=== PATIENT | female | born 1965 | race Caucasian/White ===

== ENCOUNTER → 2016-05-29 | Outpatient (CLI) | payer BC ==
[~2016-05-29] MED LIST: LORA5TAB3 PO
== END | disposition home or self-care (01) ==
LOC: C.PAPS 12:01
PROVIDERS: ATTEND Obstetrics & Gynecology
DX: Z01.419 Encounter for gynecological examination (general) (routine) without abnormal findings (principal)

== ENCOUNTER → 2016-05-31 | Outpatient (CLI) | payer BC ==
[2016-05-31 11:29] LABS: BASO % 0.6 %; BASO ABS # 0.03 K/uL (0-0.2); COMPLETE YES; EOS % 1.8 %; HEMATOCRIT 42.3 % (37-47); LYMPH % 33.7 %; LYMPH ABS # 1.72 K/uL (1.2-3.4); MEAN CELL VOLUME 89.6 fL (80-100); MEAN CORPUSCULAR HEMOGLOBIN 29.7 pg (25-34); MEAN CORPUSCULAR HGB CONC 33.1 g/dl (32-36); MEAN PLATELET VOLUME 12.4 fL (7.4-10.4); MONO % 7.3 %; NEUT % 56.6 %; PLATELET COUNT 221 K/uL (130-400); RED BLOOD COUNT 4.72 M/uL (4.2-5.4)
== END | disposition home or self-care (01) ==
LOC: C.LABBC 07:05
PROVIDERS: ATTEND Obstetrics & Gynecology
DX: Z01.818 Encounter for other preprocedural examination (principal)

== ENCOUNTER → 2016-06-13 | Day surgery (SDC) | payer BC ==
--- NOTE | 2016-06-02 14:19 | HISTORY & PHYSICAL EXAMINATION ---
DATE OF ADMISSION: 06/13/2016 For surgery on 06/13/2016. CHIEF COMPLAINT: Menorrhagia. HISTORY OF PRESENT ILLNESS: The patient is a 51-year-old white female, 1, para 1, whose last menstrual period was 05/03/2016. The patient continues to have menses sometimes lasting 2 weeks and sometimes passing large clots. The patient gets nauseated with passage of these clots. She has taken time off work due to the amount of bleeding with her menses. The patient has been on Depo-Provera in the past and then used progestin only pills. She stopped the medications and began menstruating again, having heavy periods as described. The patient does not wish to use hormones again. She is presently using condoms for contraception. She has considered her options for treatment and desires surgical treatment with endometrial ablation. Ultrasound done October 2015 showed a thin endometrial lining. Her right ovary is surgically absent and her left ovary appeared normal. Pap smear was done on 05/29/2016 and this was negative. ALLERGIES: The patient reports no known drug allergies. SHE HAS ENVIRONMENTAL ALLERGIES TO DUST AND POLLENS. MEDICATIONS: She presently takes Claritin-D. ILLNESSES: Menorrhagia with dysmenorrhea as above. PAST MEDICAL HISTORY: The patient does have a history of an ovarian cyst, which was surgically removed. PAST SURGICAL HISTORY: She has had 1 section. She has undergone cholecystectomy. She had laparoscopy with removal of her right tube and ovary. She has also had shoulder surgery and carpal tunnel surgery. FAMILY HISTORY: Her maternal grandfather had colon cancer. SOCIAL HISTORY: The patient is . She denies smoking cigarettes. The patient does report occasional use of alcohol. PHYSICAL EXAMINATION: VITAL SIGNS: Height 5 feet 3 inches, weight 193 pounds, blood pressure 122/76. HEENT: Grossly within normal limits. NECK: Supple without masses. CHEST: Lungs are clear without wheezing. HEART: Regular rate and rhythm. No murmurs, gallops or rubs. BREASTS: Nontender with no masses palpable. No skin changes and no lymphadenopathy. ABDOMEN: Soft and nontender with no abdominal mass palpated. PELVIC: External genitalia normal. Vagina pink and stimulated. Cervix pink and closed with no lesions visible. Uterus within normal limits, size and nontender. Adnexa nontender with no masses palpable. Rectovaginal exam was negative. EXTREMITIES: No cyanosis, clubbing or edema. IMPRESSION: A 51-year-old white female with menorrhagia. PLAN: The patient is for hysteroscopy, dilation of the cervix and curettage with possible removal of polyp/lesion, and NovaSure ablation of the endometrium. We have discussed the risk of bleeding, infection, perforation of the uterus, possible damage to internal organs, possible need for further therapy. The patient wishes to proceed with the surgery. DELMI
[2016-06-06 14:14] VITALS: Ht 160 cm; Wt 86.4 kg
[~2016-06-13] VITALS: Ht 160 cm; Wt 86.4 kg
[~2016-06-13] MED LIST changes: +ATROPINE SULFATE 0.1 MG/ML 5ML SYR IV PRN; +CHECK SCOPOLAMINE PATCH PLACEMENT SCH; +DEXAMETHASONE SOD INJ 4 MG/ML VIAL ONE; +EpHEDrine SULFATE INJ 50 MG/ML AMP IV PRN; +FENTANYL CITRATE INJ 50 MCG/1 ML 2 ML VIAL IV PRN; +FENTANYL CITRATE INJ 50 MCG/1 ML 2 ML VIAL ONE; +FLUMAZENIL 0.1 MG/1 ML 10 ML VIAL IV PRN; +IBUPROFEN 600 MG TAB PO PRN; +KETOROLAC TROMETHAMINE 30 MG/ML VIAL ONE; +LABETALOL HCL IV 5 MG/ML 20ML IV PRN; +LACTATED RINGER'S 1000ML 1,000 ML IV SCH; +LIDOCAINE HCL 2% 2 ML VIAL (20MG/ML) ONE; +MIDAZOLAM HCL 1 MG/ML 2ML VIAL ONE; +NALOXONE HCL 0.4 MG/1 ML VIAL/CARP IV PRN; +ONDANSETRON INJ 2 MG/ML 2 ML VIAL ONE; +PROMETHAZINE HCL INJ 12.5 MG in SODIUM CHLORIDE 0.9% 50ML 50 ML IV PRN; +PROPOFOL IV EMULSION 10 MG/ML 20 ML VIAL IV ONE; +SCOPOLAMINE 1.5 MG TDSY TD ONE; +SCOPOLAMINE 1.5 MG TDSY TD SCH; +SODIUM CHLORIDE 0.9% 1000ML 1,000 ML IV SCH
--- NOTE | 2016-06-13 06:47 | History & Physical Bridge - SC ---
H&P Re-Evaluation Bridge Note: I have examined the patient, reviewed the History & Physical and in the interval since the performance of the History & Physical I have noted the following changes of clinical significance: No changes noted
--- NOTE | 2016-06-13 08:37 | [facility] Post Operative Brief Note ---
Immediate Operative Summary Operative Date Jun 13, 2016. Pre-Operative Diagnosis Menorrhagia Post-Operative Diagnosis same Procedure(s) Performed Dilatation And Curettage, Hysteroscopy, Attempted Endometrial Ablation Surgeon Dr. Luis Butt Roof Bolter Surgeon(s) Dr. Briana Jeff Estimated Blood Loss 10cc Findings See dictated note. Specimens A. Endocervical Curettings B. Endometrial Curettings Complication(s) Unable to dilate cervix adequately to do endometrial ablation. Unable to use Novasure insrument. I asked Dr Jeff to perform rollerball ablation if possible but she was unable to dilate cervix enough to use larger hysteroscope and rollerball. Endometrial procedure abandoned. Immediately after the procedure this was discussed with the patient's , and when patient was awake I informed her of this situation. Disposition Recovery Room / PACU
--- NOTE | 2016-06-13 08:50 | Discharge Instructions-SurgCtr ---
Discharge Instructions Visit Reason for Visit: Menorrhagia Discharge Discharge Diagnosis / Problem: Hysterscopy, D&C, attempted endometrial ablation. Discharge Goals Goal(s): Diagnostic testing, Therapeutic intervention Activity Recommendations Activity Limitations: per Instructions/Follow-up section Anesthesia . Post Anesthesia Instructions: If you have had General Anesthesia or IV Sedation: * Do not drive today. * Resume driving when surgeon permits. * Do not make important decisions or sign legal documents today. * Call surgeon for: 1. Temperature elevations greater than 101 degrees F. 2. Uncontrollable pain. 3. Excessive bleeding. 4. Persistent nausea and vomiting. 5. Medication intolerance (nausea, vomiting or rash). * For nausea and vomiting use only clear liquids such as: tea, soda, bouillon until nausea subsides, then gradually increase diet as tolerated. * If you have any concerns or questions, call your surgeon's office. If physician is unavailable and it is an emergency, call 911 or go to the nearest emergency room. . Instructions / Follow-Up Instructions / Follow-Up ACTIVITY RECOMMENDATIONS: * Avoid tampons, douching, hot tubs, pools, and intercourse until bleeding has stopped. * May shower as usual. * No strenuous activity for 24-48 hours. After 24-48 hours, you may do anything you feel like doing (driving and sports are okay). SPECIAL CARE INSTRUCTIONS: Special Diet: * Mild nausea may occur in the immediate post-operative period. * Take clear liquids such as tea, cola or bouillon until all nausea has subsided; you may then resume your normal diet. Special Care: * Light bleeding and vaginal spotting can last from a few days to 3-4 weeks. Call your doctor if bleeding becomes heavier than the heaviest part of your period. * Check your temperature twice a day for one week. If it goes above 100.4 degrees Fahrenheit (38.0 Celsius), notify your doctor. Call if you have persistent severe cramping or foul smelling vaginal discharge. * Call your doctor's office for an appointment for 3-4 weeks after your surgery. [phone] Butt. No intercourse until bleeding has completely stopped. FOLLOW-UP VISIT: Call your doctor's office for an appointment for 3-4 weeks after your surgery. Procedures Procedures Performed: Dilatation And Curettage, Hysteroscopy, Attempted Endometrial Ablation Medical Emergencies . Who to Call and When: Medical Emergencies: If at any time you feel your situation is an emergency, please call 911 immediately. . Non-Emergent Contact Non-Emergency issues call your: Machine Helper Call Non-Emergent contact if: you have a fever, temperature is above 100.5, your pain is not controlled . . "Provider Documentation" section prepared by Kerri Butt.
--- NOTE | 2016-06-13 09:06 | OPERATIVE REPORT ---
DATE OF OPERATION: 06/13/2016 PREOPERATIVE DIAGNOSIS: Menorrhagia. POSTOPERATIVE DIAGNOSIS: Same. PROCEDURE: Hysteroscopy, dilation and curettage of the uterus and attempted endometrial ablation. SURGEON: Dr. Kerri Butt. PROCEDURE: The patient was taken to the operating room where general anesthesia was administered. After an adequate level was obtained, she was placed in dorsal lithotomy position. Vulva, vagina, and cervix were prepped with Betadine solution. The patient was draped. Bladder was drained with a straight catheter. A weighted speculum was placed in the posterior fornix of the vagina. The cervix was grasped with an Allis clamp. Endocervical curettings were obtained. These were scant. It was difficult to sound the uterus. Small dilator was used and finally the cervical canal was entered and the uterus sounded to 8 cm. The cervix was then serially dilated enough to admit the hysteroscope. This took some time as the cervix seemed particularly firm and was difficult to dilate. After the hysteroscope was introduced the cavity was visualized. The cavity appeared without lesion. The upper portion of the cavity appeared fairly wide, but the uterus itself was fairly shallow. Subsequent soundings of the uterus put it at about 7 cm. The cervical canal was noted to be approximately 4 cm in length. Attempts were then made to insert the NovaSure instrument. This took many attempts, primarily to redilate the cervix. Finally, I felt the NovaSure instrument was inserted the appropriate depth. I then attempted to open the NovaSure instrument. That is to expand the upper portion of the instrument, but it would not expand beyond about half a centimeter. The NovaSure instrument was removed from the uterus. Hysteroscope was used to look at the uterine cavity and there appeared to be a small indentation into the upper portion of the endometrial cavity which I believe was created by the Novasure instrument. At this point, use of NovaSure instrument was abandoned. I asked Dr. Jeff to come to the operating room to see if rollerball ablation could be performed. In order to perform rollerball, the endocervical canal must be dilated to 33 in order to admit the operative hysteroscope with the rollerball instrument. Despite several additional attempts, it was not possible to dilate the cervix enough to use the rollerball. At this point, all attempts to do endometrial ablation were abandoned. As endometrial curettings had not been obtained earlier this was then carried out using small smooth curette and small serrated curette. Scant tissue was obtained; however. The procedure was then ended. Estimated blood loss 10-20 mL. The patient was taken to the recovery room in good condition. ADDENDUM: After the procedure was ended, I spoke with the patient's to inform him that we were unable to carry out the endometrial ablation and the reasons for this. When the patient awoke I discussed with her the fact that endometrial ablation could not be performed and why. I attest to the content of the Intraoperative Record and any orders documented therein. Any exceptions are noted below. MTDD
--- NOTE | 2016-06-13 09:44 | Anesthesia Progress Nt - [facility] ---
Anesthesia Post Op Note Date & Time Jun 13, 2016 at 09:43 Vital Signs Pain Intensity: 2 Vital Signs Past 12 Hours Date Time Temp Pulse Resp B/P Pulse Ox O2 Delivery O2 Flow Rate FiO2 06/13/16 09:19 57 14 06/13/16 09:19 56 14 98 06/13/16 09:14 53 11 143/80 98 06/13/16 09:14 53 11 06/13/16 09:09 66 19 100 06/13/16 09:09 69 19 06/13/16 09:08 61 9 100 06/13/16 09:08 57 9 06/13/16 09:08 61 9 100 06/13/16 09:08 57 9 06/13/16 09:04 36.5 53 12 136/76 100 Room Air 06/13/16 09:04 136/76 06/13/16 09:04 136/76 06/13/16 09:03 53 13 06/13/16 09:03 53 13 06/13/16 09:03 53 13 100 06/13/16 09:03 53 13 100 06/13/16 08:59 157/55 06/13/16 08:59 157/55 06/13/16 08:58 55 8 06/13/16 08:58 57 8 100 06/13/16 08:58 55 8 06/13/16 08:58 57 8 100 06/13/16 08:57 46 14 06/13/16 08:57 46 14 100 06/13/16 08:54 143/74 06/13/16 08:52 44 11 100 06/13/16 08:52 44 11 06/13/16 08:49 156/88 06/13/16 08:47 60 12 06/13/16 08:47 57 12 100 06/13/16 08:43 151/80 06/13/16 08:42 58 11 100 06/13/16 08:42 58 11 06/13/16 08:38 163/77 06/13/16 08:37 60 10 06/13/16 08:37 58 10 100 06/13/16 08:33 151/77 06/13/16 08:32 72 14 100 06/13/16 08:32 69 14 06/13/16 08:29 141/80 06/13/16 08:27 69 06/13/16 08:27 69 100 06/13/16 08:27 36.2 80 16 126/81 99 Diffusion Mask 6 06/13/16 06:25 37.1 67 16 119/77 99 Room Air Notes Mental Status: alert / awake / arousable, participated in evaluation Pt Amnestic to Procedure: Yes Nausea / Vomiting: adequately controlled Pain: adequately controlled Airway Patency, RR, SpO2: stable & adequate BP & HR: stable & adequate Hydration State: stable & adequate Anesthetic Complications: no major complications apparent
[2016-06-13 09:55] VITALS: BP 114/76; PULSE 53; O2SAT 98
== END | disposition home or self-care (01) ==
LOC: X.SURG 06:12
PROVIDERS: ATTEND Obstetrics & Gynecology
DX: N92.4 Excessive bleeding in the premenopausal period (principal); N94.6 Dysmenorrhea, unspecified; Z98.890 Other specified postprocedural states; Z80.0 Family history of malignant neoplasm of digestive organs

== ENCOUNTER → 2016-12-20 | Outpatient (CLI) | payer BC ==
[~2016-12-20] MED LIST changes: -ATROPINE SULFATE 0.1 MG/ML 5ML SYR IV PRN; -CHECK SCOPOLAMINE PATCH PLACEMENT SCH; -DEXAMETHASONE SOD INJ 4 MG/ML VIAL ONE; -EpHEDrine SULFATE INJ 50 MG/ML AMP IV PRN; -FENTANYL CITRATE INJ 50 MCG/1 ML 2 ML VIAL IV PRN; -FENTANYL CITRATE INJ 50 MCG/1 ML 2 ML VIAL ONE; -FLUMAZENIL 0.1 MG/1 ML 10 ML VIAL IV PRN; -IBUPROFEN 600 MG TAB PO PRN; -KETOROLAC TROMETHAMINE 30 MG/ML VIAL ONE; -LABETALOL HCL IV 5 MG/ML 20ML IV PRN; -LACTATED RINGER'S 1000ML 1,000 ML IV SCH; -LIDOCAINE HCL 2% 2 ML VIAL (20MG/ML) ONE; -MIDAZOLAM HCL 1 MG/ML 2ML VIAL ONE; -NALOXONE HCL 0.4 MG/1 ML VIAL/CARP IV PRN; -ONDANSETRON INJ 2 MG/ML 2 ML VIAL ONE; -PROMETHAZINE HCL INJ 12.5 MG in SODIUM CHLORIDE 0.9% 50ML 50 ML IV PRN; -PROPOFOL IV EMULSION 10 MG/ML 20 ML VIAL IV ONE; -SCOPOLAMINE 1.5 MG TDSY TD ONE; -SCOPOLAMINE 1.5 MG TDSY TD SCH; -SODIUM CHLORIDE 0.9% 1000ML 1,000 ML IV SCH
--- NOTE | 2016-12-20 10:59 | DIAGNOSTIC IMAGING REPORT ---
LEFT FINGER(S) MIN 2 VIEWS ROUTINE CLINICAL HISTORY: 51 years-old Female presenting with LEFT HAND 3RD DIGIT. TECHNIQUE: Frontal, oblique, and lateral views of the left third finger were obtained. COMPARISON: None. FINDINGS: Apparent fragmentation of the head of the proximal phalanx of the third finger along the ulnar aspect is only suggested on one projection. No other evidence to suggest acute fracture. No malalignment. IMPRESSION: Apparent irregularity of the ulnar aspect of the head of the proximal phalanx of the third finger. This is only seen on one projection and may be artifactual. Correlate for point tenderness. No other osseous abnormality. Electronically signed by: Mik Gupta M.D. 12/20/2016 10:58 AM Dictated Date/Time: 12/20/2016 10:56 AM
== END | disposition home or self-care (01) ==
LOC: C.RAD1850 10:27
PROVIDERS: ATTEND Family Medicine
DX: S69.90XA Unspecified injury of unspecified wrist, hand and finger(s), initial encounter (principal); X58.XXXA Exposure to other specified factors, initial encounter

== ENCOUNTER → 2017-02-21 | Outpatient (CLI) | payer BC | END | disposition home or self-care (01) | LOC: C.RDSM 13:35 | PROVIDERS: ATTEND Family Medicine Sports Medicine | DX: M79.641 Pain in right hand (principal) ==

== ENCOUNTER → 2017-07-07 | Outpatient (CLI) | payer OTHER | END | disposition home or self-care (01) | LOC: C.LAB 09:56 | PROVIDERS: ATTEND Family Medicine | DX: R07.9 Chest pain, unspecified (principal) ==